=== PATIENT | male | born 1950 | race Two or more races ===

== ENCOUNTER 2016-07-20 09:16 | Day surgery (SDC) | payer MEDICARE, MEDICAID ==
[~2016-07-20 09:16] MED LIST: IV START KIT ONE; LACTATED RINGERS 1,000 ML IV SCH; LACTATED RINGERS 1,000 ML ONE
[2016-07-20] MEDS ORDERED: PROPOFOL 60 ML IV ONE (10:02)
[2016-07-20] MEDS ORDERED: LIDOCAINE 2% (PRES FREE) 5 ML VIAL ONE (10:02)
[2016-07-20] MEDS ORDERED: KETOROLAC TROMETHAMINE 30 MG/ML 1 ML VIAL ONE (10:10)
--- NOTE | 2016-07-22 11:21 | SURGPATH ---
[facility] [address] [place] [id number] Patient Name: ANA JARAMILLO MR#: [id number] : 1950 Gender: M Specimen #: [id number] Collected: 07/20/2016 Received: 07/21/2016 Reported: 07/22/2016 Submitting Phys: HELEN ENCINAS Copy To Phys: [facility] DINA MONK Clinical History / Pre-Operative Diagnosis: RECTAL BLEEDING Specimen Source / Surgical Procedure Performed: #1-HEPATIC FLEXURE POLYP; #2-SIGMOID AT 16 CM Interpretation: 1, 2. HEPATIC FLEXURE POLYP, SIGMOID AT 16 CM, BIOPSIES: - HYPERPLASTIC POLYPS Electronically Signed Out Angel Doe M.D. Gross Description: #1 The specimen is received in a formalin filled container labeled with the patient's name and "hepatic flexure polyp". Four [facility]-ree[facility] biopsies are 0.3-0.4 cm. Totally embedded in cassette #1. #2 The specimen is received in a formalin filled container labeled with the patient's name and "sigmoid polyp at 16 cm". Three awan-reeves biopsies are 0.2, 0.3 and 0.4 cm. Totally embedded in cassette #2. Joshua Matson Microscopic Description: 1, 2. Levels reveal colonic mucosa surfaced by tubular glands with focal hyperplastic features. Adenomatous and malignant features are not present. 1: 25012 2: 36581 K63.5
== END 2016-07-20 11:00 | disposition home or self-care (01) ==
LOC: SDC 09:16
PROVIDERS: ATTEND Internal Medicine Gastroenterology
PROC: 0DBL8ZX Excision of Transverse Colon, Via Natural or Artificial Opening Endoscopic, Diagnostic (ICD-10-PCS; principal; 2016-07-20)
PROC: 0DBN8ZX Excision of Sigmoid Colon, Via Natural or Artificial Opening Endoscopic, Diagnostic (ICD-10-PCS; 2016-07-20)
PROC: 0DBN8ZX Excision of Sigmoid Colon, Via Natural or Artificial Opening Endoscopic, Diagnostic (ICD-10-PCS; 2016-07-20)
DX: K64.1 Second degree hemorrhoids (principal); K57.30 Diverticulosis of large intestine without perforation or abscess without bleeding; D12.3 Benign neoplasm of transverse colon; D12.5 Benign neoplasm of sigmoid colon; Z87.891 Personal history of nicotine dependence
CPT/HCPCS: 45385; 45380; J1885; J7120